=== PATIENT | male | born 1970 | race Caucasian/White ===

== ENCOUNTER 2020-05-25 04:53 | Emergency (ER) | payer MEDICARE ==
[~2020-05-25] VITALS: Ht 172.7 cm; Wt 95.5 kg
[2020-05-25 04:56] VITALS: BP 168/96
[2020-05-25] MEDS ORDERED: LIDOcaine 1% 30ml preserv. free vial SQ STA (05:11)
[2020-05-25] MEDS ORDERED: triamcinolone acetonide 40mg/ml inj IM ONE (05:15)
[2020-05-25] MEDS ORDERED: BUPIVAcaine/PF 2.5 mg/ml (0.25%) 30ml vial IJ ONE (05:20)
== END 2020-05-25 06:21 | disposition home or self-care (01) ==
LOC: ER 04:54
DX: M25.461 Effusion, right knee (principal); M25.462 Effusion, left knee; M60.9 Myositis, unspecified; M06.9 Rheumatoid arthritis, unspecified
CPT/HCPCS: 20610; 96372; 99283; J3301